=== PATIENT | male | born 1990 | race Caucasian/White ===

== ENCOUNTER → 2016-11-15 | Outpatient (CLI) | payer OTHER ==
[~2016-11-15] MED LIST: IOHEXOL 300 MG/ML 75 ML VIAL IV ONE
--- NOTE | 2016-11-16 09:55 | RAD ---
CT neck with contrast 11/15/2016 Indication: Localized enlarged lymph nodes. Comparison: None available Technique: Multiple axial CT images of the neck soft tissues were obtained after the administration of intravenous contrast. 70 mL of Omnipaque 300 was administered. Coronal and sagittal reformats are provided. Findings: Visualized portions of the [place] are normal. Visualized brain parenchyma and posterior fossa are normal. Orbits are normal. Paranasal sinuses are well aerated. Mastoid air cells are well aerated. Spares Scheduler space is normal in appearance. Parotid and submandibular glands are normal in appearance. The nasopharynx, oropharynx and hypopharynx appear normal. Larynx is normal. Thyroid gland is normal. Pharyngeal cartilaginous structures appear normal. Vessels are normal in course and caliber. There are scattered subcentimeter lymph nodes throughout the neck. There is a borderline enlarged right level II lymph node measuring 13 mm x 16 mm (series 2, image 58). There is a left level II lymph node which measures 7 x 11 mm (series 2, image 56). No necrotic or cystic changes are present. There are no enlarged lymph nodes in the upper mediastinum or visualized axillary regions. No suspicious pulmonary nodules or infiltrates in the visualized lungs. No suspicious osseous lesions are identified. Normal appearance of the cervical spine without evidence for spinal canal stenosis. Impression: Borderline enlarged cervical lymph nodes, most prominent in the right level 2 region measuring up to 13 x 16 mm. These findings are nonspecific and may be reactive. Recommend correlation with recent history of URI. No cystic or necrotic changes are present within these lymph nodes. Short-term follow-up is recommended to ensure resolution as lymphoma may have similar appearance. PQRS Compliance Statement: One or more of the following individualized dose reduction techniques were utilized for this examination: 1. Automated exposure control 2. Adjustment of the mA and/or kV according to patient size 3. Use of iterative reconstruction technique
== END | disposition home or self-care (01) ==
LOC: CT 16:44
PROVIDERS: ATTEND Otolaryngology
DX: R59.0 Localized enlarged lymph nodes (principal)
CPT/HCPCS: 70491